=== PATIENT | male | born 1990 | race Caucasian/White ===

== ENCOUNTER 2020-07-07 00:50 | Emergency (ER) | payer OTHER ==
[2020-07-07] MEDS ORDERED: Ibuprofen 800 MG Tab PO ONE (01:51)
--- NOTE | 2020-07-07 01:58 | EDM.PDOC ---
ED HPI GENERAL MEDICAL PROBLEM - General Chief Complaint: Lower Extremity Injury/Pain Stated Complaint: ANKLE PAIN Time Seen by Provider: 07/07/20 01:40 Source of Information: Reports: Patient History Limitations: Reports: No Limitations - History of Present Illness INITIAL COMMENTS - FREE TEXT/NARRATIVE: Mr. Edmonds is a very pleasant 30-year-old gentleman who now presents the ED stating that he has had progressively worsening left ankle pain for the past 2 weeks. Initially, the pain was only present when he first got up in the morning, but after he walked around for a little while and showered, the pain would be resolve by the time he got out of the shower. It did not bother him when sleeping, only when he got up, however, since about 07/04/2020, the pain is present all the time, and he states that he has not been able to sleep due to it. His pain is made worse with bearing weight, and he has significant difficulty ambulating. He has tried hot water, cold packs, and some sort of a hot/cold spray that his has been applying, however, he has not taken any Tylenol or ibuprofen. No prior similar symptoms in this ankle or other joints. No recent fever. The patient states that he is on his feet all the time, and it is possible that he may have strained his ankle, but he does not recall any specific injury. Here in the ED, the patient is found to be hemodynamically stable, afebrile, saturating 97% on room air. In addition to his left ankle pain, the patient reports a chronic cough that he attributes to smoking, but otherwise he denies having a recent fever, chills, sore throat, ear pain, nasal or sinus congestion, dyspnea, chest pain, palpitations, nausea, vomiting, constipation, diarrhea, abdominal pain, urinary symptoms, recent weight gain or weight loss, recent bloody bowel movements or black bowel movements, headaches, or rashes. The patient does not have a PCP. Left Ankle Pain Score (Numeric/FACES): 8 - Related Data Allergies Allergy/AdvReac Type Severity Reaction Status Date / Time No Known Allergies Allergy Verified 07/07/20 01:07 Home Meds: Home Meds . [No Known Home Meds] 06/13/14 [History] Past Medical History Endocrine/Metabolic History: Reports: Obesity/BMI 30+ - Past Surgical History HEENT Surgical History: Reports: Oral Surgery (wisdom teeth extraction) Social & Family History - Tobacco Use Smoking Status *Q: Current Every Day Smoker Tobacco Use Within Last Twelve Months: Smokeless Tobacco (Xhews 1/4 can per day) Years of Tobacco use: 15 Packs/Tins Daily: 0.5 Packs/Tins Daily Comment: Down from 1.5 ppd - Caffeine Use Caffeine Use: Reports: Soda - Alcohol Use Alcohol Use History: Yes Alcohol Use Frequency: Daily (4-5 beers per night, occasionally more) - Recreational Drug Use Recreational Drug Use: Yes Drug Use in Last 12 Months: No Recreational Drug Type: Reports: Marijuana/Hashish (last smoked around 2001) - Living Situation & Occupation Living situation: Reports: , with Spouse, with Family (4 kids) Occupation: Employed ([employer] Review of Systems - Review of Systems Review Of Systems: Comprehensive ROS is negative, except as noted in HPI. ED EXAM, GENERAL - Physical Exam Exam: See Below Exam Limited By: No Limitations General Appearance: Alert, WD/WN, Mild Distress (Appears uncomfortable. Ambulates very slowly.) Extremities: Other (Ther is mild swelling and erythema to the dorsal aspect of the proximal left foot, just distal to the anterior syndesmosis. This area is exquisitely tender, and the further brought the patient to tears. Pain is induced in this area with passive plantar flexion or active dorsiflexion of the foot, but no pain is induced with active plantarflexion or passive dorsiflexion of the foot. There is tenderness to palpation of the anterior syndesmosis, but not to the lateral or medial malleolus, to the posterior syndesmosis, or to the remainder of the foot, including the sole. Neurovascular status of the left lower extremity is intact.) ED TRAUMA EXTREMITY PROCEDURES - Splinting Left Lower Extremity Splint Site: Left foot Pre-Procedure NV Status: Normal Post-Procedure NV Status: Normal Splint Material: Fiberglass Splint Design: Posterior Applied & Form Fitted By: Provider Provider Post-Splint Application NV Check: NV Status Normal, Good Position Complications: No Course - Vital Signs Last Recorded V/S: Last Vital Signs Temp 36.6 C 07/07/20 01:04 Pulse 99 07/07/20 01:04 Resp 20 07/07/20 01:04 BP 124/88 07/07/20 01:04 Pulse Ox 97 07/07/20 01:04 - Orders/Labs/Meds Orders: Active Orders 24 hr Category Date Time Status Foot w Cont Lt [CT] Stat Exams 07/07/20 02:10 Taken Sodium Chloride 0.9% [Normal Saline] 1,000 ml Med 07/07/20 02:15 Active IV ASDIRECTED DME for Discharge [COMM] Stat Oth 07/07/20 03:21 Ordered Medication Orders Sodium Chloride (Normal Saline) 1,000 mls @ 150 mls/hr IV ASDIRECTED MALINDA Last Admin: 07/07/20 02:29 Dose: 150 mls/hr Documented by: RANI Meds: Medications Generic Name Dose Route Start Last Admin Trade Name Freq PRN Reason Stop Dose Admin Sodium Chloride 1,000 mls @ 150 mls/hr 07/07/20 02:15 07/07/20 02:29 Normal Saline IV 150 mls/hr ASDIRECTED MALINDA Administration Discontinued Medications Generic Name Dose Route Start Last Admin Trade Name Freq PRN Reason Stop Dose Admin Ibuprofen 800 mg 07/07/20 01:51 07/07/20 01:56 Motrin PO 07/07/20 01:52 800 mg ONETIME ONE Administration Iopamidol 100 ml 07/07/20 02:14 07/07/20 03:09 Isovue-300 (61%) IVPUSH 07/07/20 02:15 100 ml ONETIME ONE Administration Iopamidol 25 ml 07/07/20 02:14 07/07/20 03:09 Isovue-300 (61%) IVPUSH 07/07/20 02:15 25 ml ONETIME ONE Administration Sodium Chloride 10 ml 07/07/20 02:14 07/07/20 03:10 Saline Flush FLUSH 07/07/20 02:15 10 ml ONETIME ONE Administration - Re-Assessments/Exams Free Text/Narrative Re-Assessment/Exam: 07/07/20 02:11 As above, the patient has been experiencing 2 weeks of progressively worsening dorsal proximal foot pain, now to the point that he has difficulty bearing weight and ambulating. On examination, he has mild swelling and erythema to the proximal dorsal foot, and the area is exceptionally tender to palpation. I think it is most likely that the patient has suffered some sort of a tendinous injury, with gout being less likely, however, I want to rule out an infectious process, therefore I discussed the case with the [facility] Radiologist Dr. Marques at 02:06. She recommended that we perform a CT of the ankle and foot with IV contrast. I have ordered that, along with IV fluid. In the meantime, the patient was also given oral ibuprofen. He drove himself here, therefore I cannot give him an opioid. 07/07/20 03:17 CT of the left lower extremity with IV contrast is read by [facility] as: Bones/joints: No evidence for acute fracture or dislocation. No erosive changes to suggest joint space infection. Soft tissues: Small amount of edema in the subcutaneous fat of the dorsum of the midfoot. Visualized tendons appear intact. IMPRESSION: 1. Focal edema along the dorsum of the midfoot without abscess or drainable fluid collection. 2. The exam is otherwise within normal limits. Based on the above, it does not appear that the patient has an infectious process. The cause of the subcutaneous inflammation is not entirely clear. I will place the patient into a posterior mold splint, and have him fitted for crutches. He can then follow-up with Ortho, where, if felt appropriate, he could be fitted for a CAM walker boot. 07/07/20 03:36 I placed the patient's left foot into a posterior mold splint with the ankle at about 90 degrees. With the foot supported in dorsiflexion, the patient states that he already feels much better. He will be fitted for crutches before being discharged home. I would like him to ice the dorsal aspect of his foot and take [id number] ibuprofen. I would like him to follow-up with Ortho this week, if possible. Departure - Departure Time of Disposition: 03:37 Disposition: Home, Self-Care 01 Condition: Good Clinical Impression: Localized swelling of left foot - Discharge Information *PRESCRIPTION DRUG MONITORING PROGRAM REVIEWED*: Not Applicable *COPY OF PRESCRIPTION DRUG MONITORING REPORT IN PATIENT DEVEN: Not Applicable Referrals: PCP,None [Primary Care Provider] - Brayan Parham MD [Physician] - Forms: ED Department Discharge, ED Return to Work/School Form Additional Instructions: You were seen in the emergency room for progressively worsening painful swelling to the top of your left foot. Work-up in the ER included a CT scan of your foot with IV contrast, which showed swelling and inflammation to the painful area, but no broken bones or joint problems. The exact cause of your pain is not known, but it appears that you have some swelling to the soft tissue on the above your foot. Your left foot has been placed into a splint. The splint cannot get wet, and you cannot bear weight on it. Use crutches whenever you are ambulating. We recommend that you ice your left foot as much as possible. You can apply an ice pack directly over the splint. We recommend that you take [id number]-[id number] ibuprofen, 3 to 4 tablets (600-800 mg) up to every 8 hours, with food, [id number]. We recommend that you follow-up with the Orthopedic Surgeon Dr. Brayan briones the next available appointment; today, if possible. Call his office this morning to make an appointment. Make sure that the glue wheel operator understands that you are following up from the ER. If any other problems, please do not hesitate to return to the ER. Sepsis Event Note (ED) - Evaluation Sepsis Screening Result: No Definite Risk - Focused Exam Vital Signs: Vital Signs Temp Pulse Resp BP Pulse Ox 07/07/20 01:04 36.6 C 99 20 124/88 97 - My Orders Last 24 Hours: My Active Orders 07/07/20 02:10 Foot w Cont Lt [CT] Stat 07/07/20 02:15 Sodium Chloride 0.9% [Normal Saline] 1,000 ml IV ASDIRECTED 07/07/20 03:21 DME for Discharge [COMM] Stat - Assessment/Plan Last 24 Hours: My Active Orders 07/07/20 02:10 Foot w Cont Lt [CT] Stat 07/07/20 02:15 Sodium Chloride 0.9% [Normal Saline] 1,000 ml IV ASDIRECTED 07/07/20 03:21 DME for Discharge [COMM] Stat
[2020-07-07] MEDS ORDERED: Iopamidol 612 MG/ML 100 ML Bottle IVPUSH ONE (02:14)
[2020-07-07] MEDS ORDERED: Iopamidol 612 MG/ML 50 ML SDV IVPUSH ONE (02:14)
[2020-07-07] MEDS ORDERED: Sodium Chloride 0.9% 10 ML Syringe FLUSH ONE (02:14)
[2020-07-07] MEDS ORDERED: Sodium Chloride 0.9% 1,000 ML IV SCH (02:15)
--- NOTE | 2020-07-07 06:31 | CT ---
CT left foot Technique: Multiple axial sections through the left foot were obtained. Reconstructed coronal and sagittal images were reviewed. Intravenous contrast was utilized. Comparison: No prior foot exam is available. Findings: No fracture or bony erosions are noted. Joint spaces are fairly well preserved. Soft tissue swelling is seen within the foot most prominent within the dorsal midfoot region. No focal fluid collections are seen to indicate drainable abscess. Impression: 1. Soft tissue swelling. No fluid collection seen to indicate drainable abscess. Please correlate if patient soft tissue swelling is due to cellulitis. 2. No acute osseous finding is seen. 3. If further evaluation of ligaments or tendons as needed, MRI would then be indicated. Diagnostic code #2 This report was dictated in MDT I agree with preliminary report from Jacquelin, finalized on 07/07/20, 4:14 AM Central Daylight Time
== END 2020-07-07 03:55 | disposition home or self-care (01) ==
LOC: JD.ED 00:50
DX: R22.42 Localized swelling, mass and lump, left lower limb (principal); F17.210 Nicotine dependence, cigarettes, uncomplicated; E66.9 Obesity, unspecified; Z68.41 Body mass index [BMI] 40.0-44.9, adult
CPT/HCPCS: 29515; 73701-26-LT; 73701-LT; 96360; 99283; 99283-25; A9270-GY; J7030; Q9967

== ENCOUNTER 2024-09-26 17:51 | Observation (INO) | payer BC, OTHER ==
[2024-09-26] MEDS: Sodium Chloride 0.9% 1,000 ML IV SCH (19:04)
[2024-09-26 19:05] LABS: BASOPHILS ABSOLUTE AUTO 0.1 K/mm3 (0.0-0.2); BASOPHILS PERCENT AUTO 0.4 % (0.0-1.0); EOSINOPHILS ABSOLUTE AUTO 0.2 K/mm3 (0.0-0.4); EOSINOPHILS PERCENT AUTO 1.3 % (0.0-6.0); HEMOGLOBIN 14.8 gm/dl (14.0-18.0); IMMATURE GRAN ABSOLUTE AUTO 0.05 K/mm3 (0.00-0.05); IMMATURE GRAN PERCENT AUTO 0.4 % (0.0-0.4); LYMPHOCYTES ABSOLUTE AUTO 2.3 K/mm3 (1.0-4.8); LYMPHOCYTES PERCENT AUTO 17.5 % (24.0-44.0); MEAN CORPUSCULAR HEMOGLOBIN 30.6 pg (28.0-32.0); MEAN CORPUSCULAR HGB CONC 34.4 g/dl (32.0-36.0); MEAN CORPUSCULAR VOLUME 88.8 fl (83.0-99.0); MEAN PLATELET VOLUME 9.1 fl (9.4-12.4); MONOCYTES ABSOLUTE AUTO 0.9 K/mm3 (0.0-0.8); MONOCYTES PERCENT AUTO 6.9 % (0.0-8.0); NEUTROPHILS ABSOLUTE AUTO 9.5 K/mm3 (1.8-7.7); NEUTROPHILS PERCENT AUTO 73.5 % (41.0-71.0); PLATELET COUNT,PLT 221 K/mm3 (150-400); RED BLOOD CELL COUNT 4.84 M/mm3 (4.52-5.90); WHITE BLOOD CELL COUNT,WBC 12.91 K/mm3 (3.9-11.3)
[2024-09-26 19:27] LABS: LACTIC ACID 0.9 mmol/L (0.4-2.0)
[2024-09-26] MEDS: Piperacillin/Tazobactam 4.5 GM in Sodium Chloride 0.9% 100 ML IV ONE (19:28)
[2024-09-26] MEDS: HYDROmorphone 1 MG/ML Syringe IVPUSH ONE (19:29)
[2024-09-26] MEDS: Metoclopramide 10 MG/2 ML SDV IVPUSH ONE (19:29)
[2024-09-26 19:33] LABS: A/G RATIO 0.9 (1-2); ALBUMIN 3.7 g/dl (3.4-5.0); ANION GAP 13.9 (5-15); BILIRUBIN TOTAL 0.5 mg/dL (0.2-1.0); BUN/CREATININE RATIO 12.5 (14-18); C-REACTIVE PROTEIN 4.13 mg/dL (<0.30); CALCIUM 9.5 mg/dL (8.5-10.1); CREATININE 1.2 mg/dL (0.7-1.3); EST CRCL DRUG DOSING (CG) 96.1 mL/min; POTASSIUM,K 3.9 mEq/L (3.5-5.1); PROTEIN TOTAL,TP 7.7 g/dl (6.4-8.2)
[2024-09-26] MEDS ORDERED: Naloxone 0.4 MG/ML SDV IVPUSH PRN (22:15)
[2024-09-26] MEDS ORDERED: Morphine 2 MG/ML SYRINGE IVPUSH PRN (22:15)
[2024-09-26] MEDS ORDERED: Ondansetron 4 MG/2 ML SDV IVPUSH PRN (22:37)
[2024-09-26] MEDS: Heparin Sodium 5,000 Units/ML Vial SUBCUT SCH (23:29)
[2024-09-26] MEDS: Ketorolac 30 MG/ML SDV IVPUSH SCH (23:30)
[2024-09-26] MEDS: Piperacillin/Tazobactam 4.5 GM in Sodium Chloride 0.9% 100 ML IV SCH (23:31)
[2024-09-27] MEDS: Lactated Ringers 1,000 ML IV SCH (03:42)
[2024-09-27] MEDS: Sodium Chloride 0.9% 1,000 ML IV SCH (06:22)
[2024-09-27] MEDS ORDERED: Propofol 200 MG/20 ML SDV ONE (08:20)
[2024-09-27] MEDS ORDERED: Midazolam 1 MG/ML 2 ML SDV ONE (08:21)
[2024-09-27] MEDS ORDERED: fentaNYL 250 MCG/5 ML SDV ONE (08:21)
[2024-09-27] MEDS ORDERED: Lidocaine 1% 5 ML VIAL ONE (08:22)
[2024-09-27] MEDS ORDERED: Rocuronium 50 MG/5 ML Vial ONE (08:22)
[2024-09-27] MEDS ORDERED: Ondansetron 4 MG/2 ML SDV ONE (08:22)
[2024-09-27] MEDS ORDERED: Sugammadex Sodium 200 MG/2 ML VIAL IV ONE (09:08)
[2024-09-27] MEDS ORDERED: Ketorolac 30 MG/ML SDV ONE (09:08)
[2024-09-27] MEDS ORDERED: Piperacillin/Tazobactam 4.5 GM in Water For Injection, Sterile 20 ML IV SCH (14:00)
== END 2024-09-27 14:20 | disposition left against medical advice (07) ==
LOC: JD.ED 17:51 → JD.MS 19:25
PROVIDERS: ADMIT Surgery; ATTEND Surgery
DX: K61.1 Rectal abscess (principal); F17.210 Nicotine dependence, cigarettes, uncomplicated
CPT/HCPCS: 36415; 46040; 80053; 83605; 85025; 86140; 87070; 87075; 87205; J1885; J2250; J2405; J2543; J2704; J3010; J3490; J7030; J7120; 96361; 96365; 96366; 96375; 96376; 99284-25; G0378